=== PATIENT | male | born 1980 | race Caucasian/White ===

== ENCOUNTER 2018-05-05 12:59 | Emergency (ER) | payer BC ==
[~2018-05-05] VITALS: Ht 177.8 cm; Wt 116.1 kg
[2018-05-05 13:09] VITALS: Ht 177.8 cm; Wt 116.1 kg
[2018-05-05 14:15] LABS: BASOPHIL % 1.4 % (0-2); PLATELET COUNT 211 x10^3mcL (130-400); RED CELL DISTRIBUTION WIDTH 13.1 % (11.5-14.5)
[2018-05-05 14:19] LABS: CALCIUM 8.9 mg/dL (8.5-10.1); CARBON DIOXIDE 26.5 mmol/L (21-32); CHLORIDE SERUM 106 mmol/L (98-107); CREATININE SERUM 0.9 mg/dL (0.7-1.3); GFR1 > 60 mL/min; GLUCOSE SERUM 114 mg/dL (74-106); POTASSIUM SERUM 3.8 mmol/L (3.5-5.1); SODIUM SERUM 141 mmol/L (136-145)
[2018-05-05 14:24] LABS: ALBUMIN 3.7 g/dL (3.4-5.0); ALKALINE PHOSPHATASE 75 U/L (46-116); ALT/SGPT 32 U/L (16-63); AST/SGOT 29 U/L (15-37); BILIRUBIN TOTAL 0.6 mg/dL (0.20-1.00); TOTAL PROTEIN, SERUM 7.6 g/dL (6.4-8.2)
[2018-05-05 14:58] VITALS: BP 130/88
== END 2018-05-05 14:58 | disposition home or self-care (01) ==
LOC: ED 12:59
PROVIDERS: Emergency Medicine
DX: R07.89 Other chest pain (principal)
CPT/HCPCS: 36415; Q0092

== ENCOUNTER 2018-07-30 07:10 | Emergency (ER) | payer BC ==
[~2018-07-30] VITALS: Ht 177.8 cm; Wt 114.8 kg
[2018-07-30 07:12] VITALS: Ht 177.8 cm; Wt 114.8 kg
[2018-07-30 07:44] LABS: BASOPHIL % 0.3 % (0-2); PLATELET COUNT 176 x10^3mcL (130-400); RED CELL DISTRIBUTION WIDTH 13.6 % (11.5-14.5)
[2018-07-30 07:59] LABS: CALCIUM 8.5 mg/dL (8.5-10.1); CARBON DIOXIDE 27.7 mmol/L (21-32); CHLORIDE SERUM 105 mmol/L (98-107); GFR1 > 60 mL/min; GLUCOSE SERUM 104 mg/dL (74-106); SODIUM SERUM 139 mmol/L (136-145)
[2018-07-30 08:04] LABS: ALBUMIN 3.5 g/dL (3.4-5.0); ALKALINE PHOSPHATASE 89 U/L (46-116); ALT/SGPT 38 U/L (16-63); AST/SGOT 33 U/L (15-37); BILIRUBIN TOTAL 0.72 mg/dL (0.20-1.00); LIPASE 98 IU/L (73-393); TOTAL PROTEIN, SERUM 7.3 g/dL (6.4-8.2)
[2018-07-30 08:26] VITALS: BP 135/79
== END 2018-07-30 08:20 | disposition home or self-care (01) ==
LOC: ED 07:10
PROVIDERS: Emergency Medicine
DX: R10.11 Right upper quadrant pain (principal); R11.2 Nausea with vomiting, unspecified
CPT/HCPCS: 36415; J1885

== ENCOUNTER 2018-11-11 13:17 | Emergency (ER) | payer OTHER ==
[~2018-11-11] VITALS: Ht 177.8 cm; Wt 109.8 kg
[2018-11-11 13:20] VITALS: BP 135/82; Ht 177.8 cm; Wt 109.8 kg
== END 2018-11-11 16:01 | disposition home or self-care (01) ==
LOC: ED 13:17
DX: S49.92XA Unspecified injury of left shoulder and upper arm, initial encounter (principal); J45.909 Unspecified asthma, uncomplicated; X50.0XXA Overexertion from strenuous movement or load, initial encounter; Y93.89 Activity, other specified; Y92.89 Other specified places as the place of occurrence of the external cause; Y99.8 Other external cause status
CPT/HCPCS: J2001; J3301

== ENCOUNTER 2020-10-19 11:22 | Emergency (ER) | payer OTHER ==
[~2020-10-19] VITALS: Ht 175.3 cm; Wt 116.6 kg
[2020-10-19 11:27] VITALS: Ht 175.3 cm; Wt 116.6 kg
[2020-10-19 12:09] LABS: BASOPHIL % 0.3 % (0.2-1.5); PLATELET COUNT 203 x10^3mcL (152-348); RED CELL DISTRIBUTION WIDTH 13.2 % (12.1-16.2)
[2020-10-19 12:52] LABS: CALCIUM 9.6 mg/dL (8.5-10.1); CARBON DIOXIDE 30.2 mmol/L (21-32); CHLORIDE SERUM 105 mmol/L (98-107); CREATININE SERUM 0.9 mg/dL (0.7-1.3); GFR1 > 60 mL/min; GLUCOSE SERUM 102 mg/dL (74-106); POTASSIUM SERUM 3.9 mmol/L (3.5-5.1); SODIUM SERUM 143 mmol/L (136-145)
[2020-10-19 15:13] VITALS: BP 139/70
== END 2020-10-19 15:13 | disposition home or self-care (01) ==
LOC: ED 11:22
PROVIDERS: Emergency Medicine
DX: R07.89 Other chest pain (principal); J45.909 Unspecified asthma, uncomplicated; Z98.890 Other specified postprocedural states